=== PATIENT | male | born 1990 ===

== ENCOUNTER 2018-05-07 18:13 | Emergency (ER) | payer OTHER ==
[2018-05-07 18:13] VITALS: BMI 23.8
--- NOTE | 2018-05-07 18:41 | ED PDOC ---
Arrival/HPI - General Chief Complaint: ENT Problem Time Seen by Provider: 05/07/18 18:30 Historian: Patient, Spouse - History of Present Illness Narrative History of Present Illness (Text): 05/07/18 18:30 This 27 yo male who denies pmh presents to this ED c/o sore throat, left ear pain x 1 day. Patient admits occasional non-productive cough. Patient admits cigarettes use. Denies sob, cp, abdominal pain, dizziness, skin rash, ZALDIVAR, or abnormal gait. Time/Duration: Other (see hpi) Context: Home Past Medical History - Provider Review Nursing Documentation Reviewed: Yes - Tetanus Immunization Tetanus Immunization: Unknown - Cardiac Hx Cardiac Disorders: No - Pulmonary Hx Respiratory Disorders: No - Neurological Hx Neurological Disorder: No - HEENT Hx HEENT Disorder: No - Renal Hx Renal Disorder: No - Endocrine/Metabolic Hx Endocrine Disorders: No - Hematological/Oncological Hx Blood Disorders: No - Integumentary Hx Dermatological Disorder: No - Musculoskeletal/Rheumatological Hx Musculoskeletal Disorders: No - Gastrointestinal Hx Gastrointestinal Disorders: No - Genitourinary/Gynecological Hx Genitourinary Disorders: No - Psychiatric Hx Psychophysiologic Disorder: No Hx Substance Use: No Family/Social History - Physician Review Nursing Documentation Reviewed: Yes Family/Social History: Other (noncontributory) Smoking Status: Heavy Smoker > 10 Cigarettes Daily Hx Alcohol Use: Yes Frequency of alcohol use: Socially Hx Substance Use: No Allergies/Home Meds Allergies/Adverse Reactions: Allergies No Known Allergies Allergy (Verified 05/07/18 18:15) Review of Systems - Review of Systems Constitutional: Normal. absent: Fatigue, Weight Change, Fevers, Night Sweats Eyes: Normal ENT: Sore Throat, Other ((+) left ear pain) Respiratory: Cough. absent: SOB, Sputum, Wheezing Cardiovascular: Normal. absent: Chest Pain, Palpitations Gastrointestinal: Normal. absent: Abdominal Pain, Nausea, Vomiting Genitourinary Male: Normal. absent: Dysuria, Frequency, Hematuria Musculoskeletal: Normal. absent: Back Pain, Neck Pain, Myalgias Skin: Normal. absent: Rash Neurological: Normal. absent: Headache, Dizziness, Focal Weakness, Gait Changes , Speech Changes, Facial Droop, Disequilibrium, Seizure Endocrine: Normal Hemo/Lymphatic: Normal Psychiatric: Normal Physical Exam Vital Signs Temp Pulse Resp BP Pulse Ox 05/07/18 18:15 98.7 F 68 16 127/74 98 Temperature: Afebrile Blood Pressure: Normal Pulse: Regular Respiratory Rate: Normal Appearance: Positive for: Well-Appearing, Non-Toxic, Comfortable Pain Distress: None Mental Status: Positive for: Alert and Oriented X 3 - Systems Exam Head: Present: Atraumatic, Normocephalic Pupils: Present: PERRL Extroacular Muscles: Present: EOMI Conjunctiva: Present: Normal Mouth: Present: Moist Mucous Membranes Pharnyx: Present: Normal. No: ERYTHEMA, EXUDATE, TONSILS ENLARGED Neck: Present: Normal Range of Motion, Trachea Midline. No: Meningeal Signs, MIDLINE TENDERNESS, Paraspinal Tenderness, Lymphadenopathy Respiratory/Chest: Present: Clear to Auscultation, Good Air Exchange. No: Respiratory Distress, Accessory Muscle Use, Wheezes, Decreased Breath Sounds, Rales, Retracting, Rhonchi, Tachypneic, Tender to Palpation Cardiovascular: Present: Regular Rate and Rhythm, Normal S1, S2. No: Murmurs Abdomen: No: Tenderness, Distention, Peritoneal Signs, Rebound, Guarding Back: Present: Normal Inspection. No: CVA Tenderness Upper Extremity: Present: Normal Inspection, Normal ROM, Neurovascularly Intact , Capillary Refill < 2s. No: Cyanosis, Edema Lower Extremity: Present: Normal Inspection, Normal ROM, Capillary Refill < 2 s. No: Edema Neurological: Present: GCS=15, CN II-XII Intact, Speech Normal, Motor Func Grossly Intact, Normal Sensory Function, Normal Cerebellar Funct, Gait Normal, Memory Normal Skin: Present: Warm, Dry, Normal Color. No: Rashes Psychiatric: Present: Alert, Oriented x 3, Normal Insight, Normal Concentration Medical Decision Making ED Course and Treatment: 05/07/18 18:42 Re-evaluation. Patient feels better. Discussed results and plan with patient who expresses understanding. All questions answered and there is agreement with the plan to discharge home with instructions. Patient stable for discharge. Return if symptoms persist or worsen. Patient came with sore throat and left ear pain. Physical exam was unremarkable , and vital signs were normal. Patient requesting ABX. I told him I am going to prescribe Z-pack. I told him to hold Z-pack unless his symptoms worsen. I recommended balance diet and enough fluids. To return to emergency if symptoms worsen. I spoke with patient regarding the risk of tobacco use not only but including cancer, COPD, HTN, respiratory infection, and stroke. I recommended patient to stop smoking. I discussed with patient different ways to stop smoking with the help of his primary care physician. I spoke with patient avoid smoking cessation for at least 4 minutes. Re-evaluation Time: 18:44 Reassessment Condition: Re-examined, Unchanged Disposition/Present on Arrival - Present on Arrival Any Indicators Present on Arrival: No History of DVT/PE: No History of Uncontrolled Diabetes: No Urinary Catheter: No History of Decub. Ulcer: No History Surgical Site Infection Following: None - Disposition Have Diagnosis and Disposition been Completed?: Yes Diagnosis: Upper respiratory infection, Tobacco use disorder Disposition: HOME/ ROUTINE Disposition Time: 18:44 Patient Plan: Discharge Patient Problems: Current Active Problems Problem Status Onset Upper respiratory infection Acute Condition: GOOD Discharge Instructions (ExitCare): Viral Upper Respiratory Infection, Adult (DC ) Additional Instructions: Call private doctor for follow up visit in 1-2 days. Do not start Z-pack unless symptoms worsen. Drink plenty of fluids. Do not drive or operate machinery if you take Phenergan for cough. Return to emergency if symptoms worsen. Prescriptions: Azithromycin [Z-Alpesh] 250 mg PO DAILY #6 tab Ibuprofen [Motrin] 600 mg PO Q8 PRN #20 tab PRN Reason: Pain, Severe (8-10) Promethazine DM [Phenergan DM Syrup] 5 ml PO Q6H PRN #120 ml PRN Reason: Cough Referrals: Kevin Meier MD [Staff Provider] - Follow up with primary
[2018-05-07 18:53] VITALS: PULSE 85; RESP 19; O2SAT 99
[2018-05-07 19:02] VITALS: BP 124/52; TEMP 98
== END 2018-05-07 19:01 | disposition home or self-care (01) ==
LOC: ED 18:13
DX: J06.9 Acute upper respiratory infection, unspecified (principal); Z72.0 Tobacco use

== ENCOUNTER 2018-05-08 13:14 | Emergency (ER) | payer OTHER ==
[2018-05-08 13:16] VITALS: BMI 23.8
[2018-05-08] MEDS ORDERED: Sodium Chloride 0.9% 2,000 ML IV STA (14:40)
[2018-05-08] MEDS ORDERED: Morphine 4 mg/ml ISec IVP STA (14:40)
--- NOTE | 2018-05-08 14:53 | ED PDOC ---
Arrival/HPI - General Chief Complaint: GI Problem Time Seen by Provider: 05/08/18 13:36 Historian: Patient - History of Present Illness Narrative History of Present Illness (Text): 05/08/18 14:50 27 year old male, with no significant past medical history, who presents to the emergency department complaining of multiple episodes of vomiting s/p taking Z- alpesh pills. Patient notes he was in the emergency department yesterday, where he was diagnosed with pharyngitis and given Z-alpesh. Patient notes he took the first 2 pills this morning and began experiencing symptoms. Patient denies any fever, chills, chest pain, shortness of breath, diarrhea, back pain, neck pain, headache, dizziness, trauma/injury, or any other complaints. Time/Duration: Prior to Arrival Symptom Onset: Sudden Symptom Course: Unchanged Activities at Onset: Light Context: Home Past Medical History - Provider Review Nursing Documentation Reviewed: Yes - Infectious Disease Hx of Infectious Diseases: None - Tetanus Immunization Tetanus Immunization: Unknown - Cardiac Hx Cardiac Disorders: No - Pulmonary Hx Respiratory Disorders: No - Neurological Hx Neurological Disorder: No - HEENT Hx HEENT Disorder: No - Renal Hx Renal Disorder: No - Endocrine/Metabolic Hx Endocrine Disorders: No - Hematological/Oncological Hx Blood Disorders: No - Integumentary Hx Dermatological Disorder: No - Musculoskeletal/Rheumatological Hx Musculoskeletal Disorders: No - Gastrointestinal Hx Gastrointestinal Disorders: No - Genitourinary/Gynecological Hx Genitourinary Disorders: No - Psychiatric Hx Psychophysiologic Disorder: No Hx Substance Use: No - Anesthesia Hx Anesthesia: No Family/Social History - Physician Review Nursing Documentation Reviewed: Yes Family/Social History: Unknown Family HX Smoking Status: Heavy Smoker > 10 Cigarettes Daily Hx Alcohol Use: Yes Hx Substance Use: No Allergies/Home Meds Allergies/Adverse Reactions: Allergies No Known Allergies Allergy (Verified 05/07/18 18:15) Review of Systems - Physician Review All systems were reviewed & negative as marked: Yes - Review of Systems Constitutional: Normal Eyes: Normal ENT: Normal Respiratory: Normal. absent: SOB, Cough Cardiovascular: Normal. absent: Chest Pain Gastrointestinal: Vomiting. absent: Abdominal Pain, Diarrhea, Nausea Genitourinary Male: Normal. absent: Dysuria, Frequency Musculoskeletal: Normal. absent: Back Pain, Neck Pain Skin: Normal. absent: Rash Neurological: Normal. absent: Headache Endocrine: Normal Hemo/Lymphatic: Normal Psychiatric: Normal Physical Exam Vital Signs Reviewed: Yes Vital Signs Temp Pulse Resp BP Pulse Ox 05/08/18 16:49 98 H 18 119/55 L 98 05/08/18 13:39 98.8 F 94 H 16 133/49 L 99 Temperature: Afebrile Blood Pressure: Hypotensive Pulse: Regular Respiratory Rate: Normal Appearance: Positive for: Well-Appearing, Non-Toxic, Comfortable Pain Distress: None Mental Status: Positive for: Alert and Oriented X 3 - Systems Exam Head: Present: Atraumatic, Normocephalic Pupils: Present: PERRL Extroacular Muscles: Present: EOMI Conjunctiva: Present: Normal Mouth: Present: Moist Mucous Membranes Pharnyx: Present: EXUDATE, Other (swollen glands) Neck: Present: Normal Range of Motion Respiratory/Chest: Present: Clear to Auscultation, Good Air Exchange. No: Respiratory Distress, Accessory Muscle Use Cardiovascular: Present: Regular Rate and Rhythm, Normal S1, S2. No: Murmurs Abdomen: No: Tenderness, Distention, Peritoneal Signs Back: Present: Normal Inspection Upper Extremity: Present: Normal Inspection. No: Cyanosis, Edema Lower Extremity: Present: Normal Inspection. No: Edema Neurological: Present: GCS=15, CN II-XII Intact, Speech Normal Skin: Present: Warm, Dry, Normal Color. No: Rashes Psychiatric: Present: Alert, Oriented x 3, Normal Insight, Normal Concentration Medical Decision Making ED Course and Treatment: 05/08/18 14:55 Impression: 27 year old male presents to the ed complaining of vomiting s/p taking Z-Alpesh pills. Plan: -- Labs -- Morphine -- Zofran -- Sodium Chloride -- Reassess and disposition Progress Notes: - Lab Interpretations Lab Results: 05/08/18 14:52 05/08/18 14:52 Lab Results 05/08/18 14:52: Sodium 144, Potassium 4.0, Chloride 106, Carbon Dioxide 26, Anion Gap 16, BUN 14, Creatinine 0.8, Est GFR ( Amer) > 60, Est GFR (Non- Af Amer) > 60, Random Glucose 117 H, Calcium 9.3, Total Bilirubin 0.8, Direct Bilirubin 0.2, AST 22, ALT 26, Alkaline Phosphatase 83, Total Protein 7.8, Albumin 4.8, Globulin 3.0, Albumin/Globulin Ratio 1.6 05/08/18 14:52: WBC 15.7 H D, RBC 5.02, Hgb 14.9, Hct 41.8 L, MCV 83.3, MCH 29.7 , MCHC 35.6, RDW 13.0, Plt Count 195, MPV 10.5, Gran % 91.4 H, Lymph % (Auto) 3.9 L, [place] % (Auto) 4.5, Eos % (Auto) 0.1 L, Baso % (Auto) 0.1, Gran # 14.38 H , Lymph # (Auto) 0.6 L, [place] # (Auto) 0.7 H, Eos # (Auto) 0.0, Baso # (Auto) 0.01, Neutrophils % (Manual) 95 H, Lymphocytes % (Manual) 1 L, Monocytes % ( Manual) 4, Platelet Evaluation Normal - Medication Orders Current Medication Orders: Discontinued Medications Sodium Chloride (Sodium Chloride 0.9%) 2,000 mls @ 999 mls/hr IV .Q2H1M STA Stop: 05/08/18 16:40 Last Admin: 05/08/18 14:52 Dose: 999 mls/hr eMAR Start Stop Document 05/08/18 14:52 GMD (Rec: 05/08/18 14:52 GMD [id number]) Intravenous Solution Start Date 05/08/18 Start Time 14:52 End Date 05/08/18 End time 16:52 Total Infusion Time 120 Azithromycin (Zithromax 500mg In Ns) 500 mg in 250 mls @ 167 mls/hr IVPB STAT STA PRN Reason: Protocol Stop: 05/08/18 17:38 Last Admin: 05/08/18 16:35 Dose: 167 mls/hr eMAR Start Stop Document 05/08/18 16:35 GMD (Rec: 05/08/18 16:36 GMD [id number]) Intravenous Solution Start Date 05/08/18 Start Time 16:35 End Date 05/08/18 End time 18:05 Total Infusion Time 90 Morphine Sulfate (Morphine) 4 mg IVP STAT STA Stop: 05/08/18 14:41 Last Admin: 05/08/18 14:51 Dose: 4 mg MAR Pain Assessment Document 05/08/18 14:51 GMD (Rec: 05/08/18 14:51 GMD [id number]) Pain Reassessment Is this a pain reassessment? No IVP Administration Document 05/08/18 14:51 GMD (Rec: 05/08/18 14:51 GMD [id number]) Charges for Administration # of IVP Administrations 1 Ondansetron HCl (Zofran Inj) 4 mg IVP STAT STA Stop: 05/08/18 14:41 Last Admin: 05/08/18 14:51 Dose: 4 mg IVP Administration Document 05/08/18 14:51 GMD (Rec: 05/08/18 14:51 GMD [id number]) Charges for Administration # of IVP Administrations 1 Ondansetron HCl (Zofran Inj) 4 mg IVP STAT STA Stop: 05/08/18 16:10 Last Admin: 05/08/18 16:35 Dose: 4 mg IVP Administration Document 05/08/18 16:35 GMD (Rec: 05/08/18 16:35 GMD [id number]) Charges for Administration # of IVP Administrations 1 - Scribe Statement The provider has reviewed the documentation as recorded by the Scribmaria t Mack All medical record entries made by the Scribmaria t were at my direction and personally dictated by me. I have reviewed the chart and agree that the record accurately reflects my personal performance of the history, physical exam, medical decision making, and the department course for this patient. I have also personally directed, reviewed, and agree with the discharge instructions and disposition. Disposition/Present on Arrival - Present on Arrival Any Indicators Present on Arrival: No History of DVT/PE: No History of Uncontrolled Diabetes: No Urinary Catheter: No History of Decub. Ulcer: No History Surgical Site Infection Following: None - Disposition Have Diagnosis and Disposition been Completed?: Yes Diagnosis: Pharyngitis, Vomiting Disposition: HOME/ ROUTINE Disposition Time: 17:54 Patient Plan: Discharge Condition: GOOD Discharge Instructions (ExitCare): Nausea and Vomiting, Adult (DC), Sore Throat , Adult (DC) Forms: [facility] (Telugu), SCHOOL NOTE, WORK NOTE
[2018-05-08 14:56] LABS: BASO # 0.01 K/mm3 (0.0-2.0); BASO % 0.1 % (0.0-3.0); EOS % 0.1 % (1.5-5.0); GRAN # 14.38 (1.4-6.5); GRAN % 91.4 % (50.0-68.0); HEMOGLOBIN 14.9 g/dL (14.0-18.0); LYMPH # 0.6 (1.2-3.4); LYMPH % 3.9 % (22.0-35.0); MEAN CELL VOLUME 83.3 fl (80.0-105.0); MEAN CORPUSCULAR HEMOGLOBIN 29.7 pg (25.0-35.0); MEAN CORPUSCULAR HGB CONC 35.6 g/dl (31.0-37.0); MEAN PLATELET VOLUME 10.5 fl (7.0-11.0); MONO # 0.7 (0.1-0.6); MONO % 4.5 % (1.0-6.0); PLATELET COUNT 195 10^3/uL (120.0-450.0); RBC 5.02 10^6/uL (3.5-6.1); WHITE BLOOD COUNT 15.7 10^3/ul (4.5-11.0)
[2018-05-08 15:05] LABS: ALB/GLOB RATIO 1.6 (1.1-1.8); ALBUMIN 4.8 g/dL (3.0-4.8); ALT/SGPT 26 U/L (7-56); AST/SGOT 22 U/L (17-59); BILIRUBIN,DIRECT 0.2 mg/dL (0.0-0.4); BLOOD UREA NITROGEN 14 mg/dL (7-21); CALCIUM 9.3 mg/dL (8.4-10.5); GFR AFRICAN-AMERICAN > 60; GFR NON-AFRICAN AMERICAN > 60
[2018-05-08 15:11] LABS: LYMPHOCYTE 1 % (22.0-35.0); MONOCYTE 4 % (1.0-6.0); NEUTROPHIL 95 % (50.0-70.0)
[2018-05-08 15:12] LABS: PLATELET ESTIMATE NORMAL (NORMAL)
[2018-05-08] MEDS ORDERED: Azithromycin 500MG/NS 250ml 500 MG/250 ML BAG IVPB STA (16:09)
[2018-05-08 16:49] VITALS: RESP 18; O2SAT 98
[2018-05-08 19:02] VITALS: BP 118/79; PULSE 78; TEMP 98.1
== END 2018-05-08 19:02 | disposition home or self-care (01) ==
LOC: ED 13:14
DX: J02.9 Acute pharyngitis, unspecified (principal); R11.10 Vomiting, unspecified
CPT/HCPCS: 80053; 82248; 85025; 86308; 96361; 96365; 96375; 96376; 99285; J0456; J2270; J2405; J7030